=== PATIENT | female | born 1995 | race Caucasian/White ===

== ENCOUNTER → 2017-09-29 | Outpatient (CLI) | payer SELFPAY ==
--- NOTE | 2017-09-29 16:43 | RADIOLOGY REPORT (SQ) ---
EXAM DESCRIPTION: U/S [id number] TRNABD 1GES W/ODOP COMPLETED DATE/TIME: 09/29/2017 1:55 pm REASON FOR STUDY: ENCOUNTER FOR SUPRVSN OF NORMAL , FIRST TRIMESTER Z34.81 ENCOUNTER FOR S UPRVSN OF NORMAL , FIRST TRIM COMPARISON: None. TECHNIQUE: Transabdominal static and realtime grayscale images acquired of the pelvis. Additional se lected spectral and color Doppler images recorded. All images stored on PACs. bHCG: Not available CLINICAL DATES: Last menses 07/28/2017 LIMITATIONS: Ovaries not visualized due to adnexal bowel gas FINDINGS: FETUS: Living intrauterine . ULTRASOUND EGA: 7 weeks 1 day ULTRASOUND ROBERT: 05/17/2018 CRL: 1.1 cm FHR: 169 beats per minute. SUBCHORIONIC BLEED: Yes SIZE OF BLEED: 1.9 x 1.2 cm in size UTERUS: No masses. No anomalies. 9.5 x 8 x 6 cm in size CERVICAL LENGTH: 4 cm Closed. RIGHT ADNEXA: Not well seen due to adnexal bowel gas LEFT ADNEXA: Not well seen due to adnexal bowel gas FREE FLUID: None. OTHER: No other significant finding. IMPRESSION: LIVING INTRAUTERINE . EGA 7 weeks 1 day. Small subchorionic hemorrhage Trimester of : First - 0 to 13 weeks. TECHNICAL DOCUMENTATION: JOB ID: [id number] [employer]- All Rights Reserved rev-08/14 Reading location - IP/workstation name: [email or web address]
== END ==
LOC: RAD 12:46
PROVIDERS: ATTEND Nurse Practitioner Women's Health
DX: Z34.81 Encounter for supervision of other normal pregnancy, first trimester (principal)
CPT/HCPCS: 76801

== ENCOUNTER 2017-10-29 07:49 | Emergency (ER) | payer MEDICAID ==
[2017-10-29] MEDS ORDERED: BUTALB/ACETAMINOPHEN/CAFFEINE 1 TAB EACH PO ONE (09:13)
--- NOTE | 2017-10-29 09:32 | ER Document Report ---
ED General - General Chief Complaint: Dizziness Stated Complaint: DIZZINESS Time Seen by Provider: 10/29/17 09:02 Mode of Arrival: Ambulatory Information source: Patient TRAVEL OUTSIDE OF THE [place] IN LAST 30 DAYS: No - HPI Patient complains to provider of: Headache Onset: Other - This 22-year-old female presents for evaluation of a headache which she has had intermittently since yesterday, she has a history of a Chiari malformation and noted to have chronic headaches which she says this feels similar to though today was a slightly more concerning episode as she was dropping her off at work and then felt like she was getting lightheaded while driving. He then stopped and asked her to drive her to the emergency room she did not take anything try and help with it, nothing seemed to make it any better moving and walking seems to make it worse with sitting does occasionally help. She denies any chest pain palpitations shortness of breath abdominal pain diarrhea constipation dysuria. She denies any fevers or chills. She denies any rashes or other symptoms. She is currently and around 11 weeks has had a normal ultrasound and is followed by an insole and outsole splitter. - Related Data Allergies/Adverse Reactions: No Known Allergies Allergy (Unverified 10/29/17 07:50) Past Medical History - Social History Smoking Status: Never Smoker Cigarette use (# per day): No Chew tobacco use (# tins/day): No Frequency of alcohol use: None Drug Abuse: None Lives with: Spouse/Significant other Family History: None Patient has suicidal ideation: No Patient has homicidal ideation: No - Medical History Medical History: Other - Chiari malformation and headaches Neurological Medical History: Reports: Hx Migraine Renal/ Medical History: Denies: Hx Peritoneal Dialysis Review of Systems - Review of Systems Neurological/Psychological: Headaches -: Yes All other systems reviewed and negative Physical Exam - Vital signs Vitals: Temp Pulse Resp BP Pulse Ox 98.2 F 78 16 111/63 100 10/29/17 07:53 10/29/17 07:53 10/29/17 07:53 10/29/17 07:53 10/29/17 07:53 - General General appearance: Appears well In distress: None - HEENT Head: Normocephalic Eyes: Normal Conjunctiva: Normal Cornea: Normal Ears: Normal External canal: Normal Sinus: Normal Nasal: Normal Pharynx: Normal Neck: Normal - Respiratory Respiratory status: No respiratory distress Chest status: Nontender Breath sounds: Normal - Cardiovascular Rhythm: Regular Heart sounds: Normal auscultation - Abdominal Distension: No distension - Back Back: Normal - Extremities General upper extremity: Normal inspection General lower extremity: Normal inspection Shoulder: Normal Arm: Normal Elbow: Normal Forearm: Normal Wrist: Normal - Neurological Neuro grossly intact: Yes Cognition: Normal Orientation: AAOx4 [place] Coma Scale Eye Opening: Spontaneous [place] Coma Scale Verbal: Oriented [place] Coma Scale Motor: Obeys Commands [place] Coma Scale Total: 15 Speech: Normal Cranial nerves: Normal Cerebellar coordination: Normal Motor strength normal: LUE, RUE, LLE, RLE 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 She has not used any medication other than some Tylenol help with she notes that she is not thirsty it also does not like the taste of water and has been drinking well. Given that she does have an episode of possible lightheadedness will plan for an EKG, urinalysis and appear to monitoring will administer Fioricet in the emergency department for evaluation of migrainous symptoms and hopeful improvement. On reassessment this patient did have improvement of her symptoms following administration of Fioricet, her EKG was unremarkable and did not demonstrate any right heart strain. She notes that she believes that this is likely related to her Chiari malformation is likely not something else that we did discuss the importance of returning case of any worsening. Bedside ultrasound did did demonstrate an intrauterine which was appropriate for dates, there was a strong appreciable heartbeat with a range approximately 150 bpm. - Vital Signs Vital signs: Temp Pulse Resp BP Pulse Ox 98.3 F 73 16 109/67 100 10/29/17 10:17 10/29/17 10:17 10/29/17 10:17 10/29/17 10:17 10/29/17 10:17 - Laboratory Laboratory results interpreted by me: 10/29/17 09:14 Ur Leukocyte Esterase MODERATE H - EKG Interpretation by [facility] EKG shows normal: Sinus rhythm - 70 bpm, no appreciable ST segment changes, no prolonged QT, no signs of right heart strain. Discharge - Discharge Clinical Impression: Headache Qualifiers: Headache type: unspecified Headache chronicity pattern: episodic headache Intractability: not intractable Qualified Code(s): R51 - Headache Urinary tract infection Qualifiers: Urinary tract infection type: acute cystitis Hematuria presence: without hematuria Qualified Code(s): N30.00 - Acute cystitis without hematuria Condition: Stable Disposition: HOME, SELF-CARE Instructions: Cephalexin ([facility]) Additional Instructions: You should utilize the prescriptions provided to use as directed on the bottle, use antibiotic twice a day over the next 7 days. Use the headache medicine prescribed to use as needed for your headache. Call your insole and outsole splitter about your visit today scheduling an appointment to follow-up. If you have worsening headache, chest pain shortness of breath or begin to faint please return to the emergency room as it could be a more serious condition. Please continue to drink as much fluid as you are able to ensure that you are adequately hydrated. Prescriptions: Butalb/Acetaminophen/Caffeine [Fioricet 50-300-40 mg Capsule] 1 cap PO Q6 #20 cap Cephalexin Monohydrate [Keflex 500 mg Capsule] 500 mg PO BID 7 Days #14 capsule Forms: Return to Work
[2017-10-29 09:47] LABS: APPEARANCE,URINE SLIGHTLY-CLOUDY; BILIRUBIN,URINE NEGATIVE (NEGATIVE); COLOR,URINE STRAW; GLUCOSE, URINE NEGATIVE (NEGATIVE); KETONES,URINE NEGATIVE (NEGATIVE); LEUKOCYTE ESTERASE,URINE MODERATE (NEGATIVE); NITRITE,URINE NEGATIVE (NEGATIVE); PROTEIN,URINE NEGATIVE (NEGATIVE); URINE SPECIFIC GRAVITY 1.006; UROBILINOGEN,URINE NEGATIVE mg/dL (<2.0)
[2017-10-29 10:20] VITALS: BP 109/67
--- NOTE | 2017-10-29 22:36 | EKG REPORT ---
SEVERITY:- NORMAL ECG - SINUS RHYTHM : Confirmed by: Brandie Coulter 29-Oct-2017 22:35:33
== END 2017-10-29 10:20 | disposition home or self-care (01) ==
LOC: ER 07:49
DX: O26.891 Other specified pregnancy related conditions, first trimester (principal); R51 Headache; H53.9 Unspecified visual disturbance; O23.41 Unspecified infection of urinary tract in pregnancy, first trimester; Z3A.11 11 weeks gestation of pregnancy; Z86.69 Personal history of other diseases of the nervous system and sense organs
CPT/HCPCS: 93005; 99284; 81001; 93010; J3490